=== PATIENT | male | born 1965 | race Caucasian/White ===

== ENCOUNTER 2019-09-22 18:39 | Emergency (ER) | payer OTHER ==
[2019-09-22 18:54] VITALS: BP 138/81
--- NOTE | 2019-09-22 18:56 | UC ---
Dizzy HPI HPI Summary: 53yo male presenting with c/o "dizziness and lightheadedness all day." States he has felt like this since he woke up. Also notes left shoulder and arm pain but is unable to describe the pain. Patient also states that his "chest hurts a little." Denies aggravating or alleviating factors for symptoms. Denies sob. Denies palpitations. Denies vision changes. Denies n/v. Denies diaphoresis. Denies numbness and tingling. Patient denies any activities outside of his normal routine today. States he has eaten today and been hydrated. Nonsmoker and denies alcohol/substance use. Denies recent illness. Denies URI symptoms. Denies cough. Denies fever, chills, ROCHE. Patient denies any past medical history , including htn, heart disease, diabetes, copd. Denies any daily or new medications. Denies any known FHx of heart disease. - History Of Current Complaint Chief Complaint: UCChestPain Stated Complaint: DIZZY Time Seen by Provider: 09/22/19 18:56 Hx Obtained From: Patient Pain Intensity: 3 - Allergies/Home Medications Allergies/Adverse Reactions: Allergies Allergy/AdvReac Type Severity Reaction Status Date / Time No Known Allergies Allergy Verified 09/22/19 20:07 Home Medications: Home Medications Azelastine/Fluticasone MASHA(NF [Dymista(NF)] 1 spray BOTH NARES DAILY 12/04/14 [ History Confirmed 09/22/19] Desloratadine/Pseudoephedrine [Clarinex-D 12 Hour] 1 tab PO Q12HR PRN 09/22/19 [ History Confirmed 09/22/19] PMH/Surg Hx/FS Hx/Imm Hx - Family History Known Family History: Positive: None - Social History Alcohol Use: Weekly Substance Use Type: None Smoking Status (MU): Never Smoked Tobacco Review of Systems All Other Systems Reviewed And Are Negative: Yes Constitutional: Positive: Negative Skin: Positive: Negative Eyes: Positive: Negative ENT: Positive: Negative Respiratory: Positive: Negative Cardiovascular: Positive: Chest Pain - "a little". Negative: Palpitations Gastrointestinal: Positive: Negative. Negative: Vomiting, Nausea Motor: Positive: Negative Neurovascular: Positive: Negative Musculoskeletal: Positive: Arthralgia - L shoulder/upper arm arm Neurological/Mental Status: Positive: Negative Psychological: Positive: Negative Physical Exam - Summary Physical Exam Summary: Vital Signs Reviewed: Yes A+Ox3, no distress Eyes: Conjunctiva Clear, DENISSE. EOM intact and full ENT: Hearing grossly normal TM x 2 clear, moist, uvula midline, no exudate, no erythema Neck: Positive: Supple Respiratory: Positive: No respiratory distress, No accessory muscle use + CTA throughout no w/r Cardiovascular: RRR nl s1, s2 no m/r CBT <2 sec Abd: soft + BS nt/nd no guarding Musculoskeletal Exam: LEUNG x 4 without difficulty Strength Intact, ROM Intact Neurological: Positive: Alert, + sensation throughout Psychological: Positive: age appropriate behavior Skin: Positive: no rash, no ecchymosis Vital Signs: Initial Vital Signs Temp 97.9 F 09/22/19 18:51 Pulse 80 09/22/19 18:51 Resp 18 09/22/19 18:51 BP 138/81 09/22/19 18:51 Pulse Ox 99 09/22/19 18:51 Diagnostics - EKG Cardiac Rate: NL Cardiac Rhythm: Sinus: Normal Ectopy: None ST Segment: Normal Dizzy Course/Dx - Course Course Of Treatment: 53yo male presenting with c/o "dizziness and lightheadedness all day." States he has felt like this since he woke up. Also notes left shoulder and arm pain but is unable to describe the pain. Patient also states that his "chest hurts a little." Denies sob. Denies palpitations. Denies vision changes. Denies n/v. Denies diaphoresis. Denies numbness and tingling. Patient denies any activities outside of his normal routine today. States he has eaten today and been hydrated. Nonsmoker and denies alcohol/substance use. Denies recent illness. Denies URI symptoms. Denies cough. Denies fever, chills, ROCHE. Patient denies any past medical history, including htn, heart disease, diabetes, copd. Denies any daily medications. Denies any known FHx of heart disease. Patient VS normal. PE findings WNL. EKG reveals sinus rhythm, normal ST segment, no ectopy. Discussed this with patient and informed him that even though his EKG was normal, I am unable to rule out a cardiac event. I told the patient it is recommended that he be evaluated in the emergency department immediately for a full cardiac workup and that an ambulance can be called to transfer him. Patient voiced understanding and agreed to go to the emergency room upon departure from the urgent care. Patient declined transfer via ambulance. Patient stable and in no distress upon departure. - Differential Dx/Diagnosis Differential Diagnosis/HQI/PQRI: Anxiety, CVA, Dysrhythmia, Hypovolemia, Myocardial Infarction, Vasovagal Reaction Provider Diagnosis: Dizziness, Pain in left shoulder, Left-sided chest pain Discharge ED - Sign-Out/Discharge Documenting (check all that apply): Patient Departure All imaging exams completed and their final reports reviewed: No Studies - Discharge Plan Condition: Stable Disposition: HOME-RECOMMEND TO ED Patient Education Materials: Chest Pain (ED), Dizziness (ED) Referrals: Andi Araya MD [Primary Care Provider] - Additional Instructions: The provider that evaluated you today thinks that you need additional testing that can be completed the emergency department. It is recommended that you go directly to emergency department for further evaluation. This evaluation included blood work or imaging. This testing will be directed and decided by the provider that evaluates you at the emergency department. If pain becomes worse, you feel lightheaded, or you have any other concerns while you are driving to emergency department, it is recommended to pullover and contact 911. - Billing Disposition and Condition Condition: STABLE Disposition: Home-Recommend to ED
== END 2019-09-22 19:08 | disposition home health service (06) ==
LOC: UCEAST 18:39
DX: R42 Dizziness and giddiness (principal); M25.512 Pain in left shoulder; R07.9 Chest pain, unspecified
CPT/HCPCS: 93005; 99212; G0463

== ENCOUNTER 2019-09-22 19:29 | Emergency (ER) | payer OTHER ==
--- NOTE | 2019-09-22 19:47 | ED ---
Dizziness - HPI Summary HPI Summary: This patient is a 53 year old male presenting to [facility] with a chief complaint of dizziness since this morning. He states when he woke up this morning and stood up out of bed he felt unbalanced and the room spinning. He states now the dizziness is more of a lightheadedness. He denies fever, chills, syncope. sore throat, n/v/d, rash. He states mild pain in his left shoulder, which started at some point earlier today atraumatic. - History Of Current Complaint Chief Complaint: EDDizziness Stated Complaint: DIZZINESS PER PT Time Seen by Provider: 09/22/19 19:40 Hx Obtained From: Patient Timing: Hours Character: Lightheaded, Dizzy Aggravating Factor(s): Nothing Alleviating Factor(s): Nothing - Allergies/Home Medications Allergies/Adverse Reactions: Allergies Allergy/AdvReac Type Severity Reaction Status Date / Time No Known Allergies Allergy Verified 09/22/19 20:07 Home Medications: Home Medications Azelastine/Fluticasone MASHA(NF [Dymista(NF)] 1 spray BOTH NARES DAILY 12/04/14 [ History Confirmed 09/22/19] Desloratadine/Pseudoephedrine [Clarinex-D 12 Hour] 1 tab PO Q12HR PRN 09/22/19 [ History Confirmed 09/22/19] PMH/Surg Hx/FS Hx/Imm Hx Endocrine/Hematology History: Denies: Hx Diabetes EENT History: Denies: Hx Deafness Infectious Disease History: No Infectious Disease History: Denies: Traveled Outside the [place] in Last 30 Days - Family History Known Family History: Positive: Other - Multiple Sclerosis - Social History Alcohol Use: Weekly Substance Use Type: Reports: None Smoking Status (MU): Never Smoked Tobacco Review of Systems Negative: Fever, Chills Negative: Sore Throat Negative: Vomiting, Diarrhea, Nausea Positive: Other - Left shoulder pain Negative: Rash Neurological/Mental Status: Other - Dizziness All Other Systems Reviewed And Are Negative: Yes Physical Exam - Summary Physical Exam Summary: Appearance: Well-appearing, Well-nourished, lying in bed comfortably Skin: Warm, dry, no obvious rash Eyes: sclera anicteric, no conjunctival pallor ENT: mucous membranes moist, pharynx appears normal Neck: Supple, nontender Respiratory: Clear to auscultation, no signs of respiratory distress Cardiovascular: Normal S1, S2. No murmurs. Normal distal pulses in tibial and radial bilaterally. Abdomen: Soft, nontender, normal active bowel sounds present Musculoskeletal: Normal, Strength/ROM Intact Neurological: A&Ox3, awake and alert, mentation is normal, speech is fluent and appropriate Psychiatric: affect is normal, does not appear anxious or depressed Triage Information Reviewed: Yes Vital Signs On Initial Exam: Initial Vitals Temp Pulse Resp BP Pulse Ox 98.1 F 78 18 141/92 98 09/22/19 19:34 09/22/19 19:34 09/22/19 19:34 09/22/19 19:34 09/22/19 19:34 Vital Signs Reviewed: Yes Procedures - Sedation Patient Received Moderate/Deep Sedation with Procedure: No Diagnostics - Vital Signs Vital Signs Temp Pulse Resp BP Pulse Ox 09/22/19 19:34 98.1 F 78 18 141/92 98 - Laboratory Result Diagrams: 09/22/19 19:55 09/22/19 19:55 Lab Statement: Any lab studies that have been ordered have been reviewed, and results considered in the medical decision making process. - EKG 2004 Cardiac Rate: NL - 76 BPM EKG Rhythm: Sinus Rhythm Summary of EKG Findings: NSR at 76 BPM, P waves, QRS complex, and T waves are within normal limits, T waves and intervals are normal, no ischemic changes. This is a normal EKG. Dizzy Course/Dx - Course Course Of Treatment: This patient is a 53 year old male presenting to [facility] with a chief complaint of dizziness since this morning. Physical exam and EKG were unremarkable. Labs were unremarkable except MCH 32 H, MPV 6.6 L, and Glucose 103 H. Plan for discharge was discussed with the patient and he understands and agrees with this plan. - Diagnoses Provider Diagnoses: Dizziness Discharge ED - Sign-Out/Discharge Documenting (check all that apply): Patient Departure - Discharge - Discharge Plan Condition: Stable Disposition: HOME Patient Education Materials: Dizziness (ED) Referrals: Andi Araya MD [Primary Care Provider] - Additional Instructions: The tests we did looking at the heart all came back negative. The cause of your dizziness is difficult to say at this point, but there is no evidence of anything dangerous. Sometimes it takes time for an illness to manifest itself, so pay attention to your symptoms and if you start to feel worse and develop new symptoms, a recheck may be in order, either here or with your regular doctor. - Billing Disposition and Condition Condition: STABLE Disposition: Home - Attestation Statements Document Initiated by Seema: Yes Documenting Faridaibpatel: Pierre Mota Provider For Whom Seema is Documenting (Include Credential): Horacio Amaral MD Scribe Attestation: IPierre, scribed for Horacio Amaral MD on 09/23/19 at 0634. Scribe Documentation Reviewed: Yes Provider Attestation: The documentation as recorded by the Pierre bernabe accurately reflects the service I personally performed and the decisions made by me, Horaico Amaral MD Status of Scribe Document: Viewed
[2019-09-22 20:02] LABS: ABS Basophils 0.1 10^3/ul (0-0.2); ABS Eosinophils 0.3 10^3/ul (0-0.6); ABS Lymphocytes 2.5 10^3/ul (1.0-4.8); ABS Monocytes 0.6 10^3/ul (0-0.8); ABS Neutrophils 2.8 10^3/ul (1.5-7.7); Eosinophil % 4.1 %; Hematocrit 44 % (42-52); Hemoglobin 15.6 g/dL (14.0-18.0); Lymphocyte % 40.3 %; Mean Corpuscular HGB Conc 35 g/dL (31-36); Mean Corpuscular Hemoglobin 32 pg (27-31); Mean Corpuscular Volume 92 fL (80-94); Mean Platelet Volume 6.6 fL (7.4-10.4); Nucleated Red Blood Cells % 0.1; Platelet Count 227 10^3/uL (150-450); Red Blood Count 4.82 10^6 /uL (4.18-5.48); Red Cell Distribution Width 13 % (10-15); White Blood Count 6.3 10^3/uL (3.5-10.8)
[2019-09-22 20:19] LABS: Albumin 4.7 g/dL (3.2-5.2); Albumin/Globulin Ratio 1.9 (1-3); BUN/Creatinine Ratio 17.5 (8-20); Calcium 9.3 mg/dL (8.6-10.3); EGFR African American 91.8 (>60); EGFR Non-African American 75.8 (>60); Globulin 2.5 g/dL (2-4); Potassium 3.8 mmol/L (3.5-5.0); Total Bilirubin 0.5 mg/dL (0.2-1.0); Total Protein 7.2 g/dL (6.4-8.9)
[2019-09-22 20:21] LABS: Troponin I 0.01 ng/mL (<0.03)
[2019-09-22 20:36] VITALS: BP 126/79
== END 2019-09-22 20:34 | disposition home or self-care (01) ==
LOC: ED 19:29
DX: R42 Dizziness and giddiness (principal)
CPT/HCPCS: 36415; 80053; 84484; 85025; 93005; 99282